=== PATIENT | female | born 1995 | race African-American/Black ===

== ENCOUNTER 2017-02-10 14:22 | Emergency (ER) | payer MEDICAID ==
[~2017-02-10] VITALS: Ht 165.1 cm; Wt 67.0 kg
[2017-02-10 15:10] VITALS: BP 126/79
== END 2017-02-10 17:29 | disposition home or self-care (01) ==
LOC: ER 15:52
DX: M94.0 Chondrocostal junction syndrome [Tietze] (principal)
CPT/HCPCS: 99282